=== PATIENT | female | born 1975 | race Caucasian/White ===

== ENCOUNTER → 2018-09-25 | Outpatient (CLI) | payer BC, OTHER | END | disposition home or self-care (01) | LOC: CFH 14:30 | PROVIDERS: ATTEND Obstetrics & Gynecology | DX: R92.2 Inconclusive mammogram (principal); N64.4 Mastodynia | CPT/HCPCS: 76641; 77066; G0279 ==

== ENCOUNTER 2019-11-30 13:30 | Outpatient (CLI) | payer BC ==
[2019-11-30 14:39] LABS: BASOPHILS # (AUTO) 0.02 x10^3/uL (0-0.1); BASOPHILS % (AUTO) 0 % (0-1); EOSINOPHILS # (AUTO) 0.24 x10^3/uL (0-0.4); EOSINOPHILS % (AUTO) 3 % (1-7); LYMPHOCYTES # (AUTO) 1.29 x10^3/uL (1-3.4); LYMPHOCYTES % (AUTO) 17 % (22-44); MD NO; MEAN CORPUSCULAR HEMOGLOBIN 29.6 pg (27.0-34.8); MEAN CORPUSCULAR HGB CONC 33.5 g/dL (32.4-35.8); MEAN PLATELET VOLUME 8.3 fL (7.4-10.4); MONOCYTES # (AUTO) 0.49 x10^3/uL (0.2-0.8); MONOCYTES % (AUTO) 6 % (2-9); NEUTROPHILS # (AUTO) 5.63 x10^3/uL (1.8-6.8); NEUTROPHILS % (AUTO) 74 % (42-75); PLATELET COUNT 327 x10^3/uL (130-400); RED BLOOD COUNT 5.02 x10^6/uL (3.82-5.3); RED CELL DISTRIBUTION WIDTH 13.2 % (9.6-15.2)
[2019-11-30 14:48] LABS: MICROSCOPIC NOT IND
[2019-11-30 14:49] LABS: ALANINE AMINOTRANSFERASE 24 U/L (12-78); ALBUMIN 4.1 g/dL (3.4-5.0); ANION GAP 6 mmol/L (5-15); CALCIUM 8.4 mg/dL (8.5-10.1); CHLORIDE 110 mmol/L (98-107); CREATININE 0.98 mg/dL (0.55-1.02)
[2019-11-30 14:53] LABS: ALKALINE PHOSPHATASE 41 U/L (45-117); BILIRUBIN,TOTAL 0.5 mg/dL (0.2-1.0); TOTAL PROTEIN 7.4 g/dL (6.4-8.2)
[2019-11-30] MEDS ORDERED: FLUT1BLS INH (15:00)
[2019-11-30] MEDS ORDERED: ALBU8.5H8 INH (15:00)
[2019-11-30] MEDS ORDERED: MULT-308 PO (15:00)
[2019-11-30] MEDS ORDERED: TIOT18CA INH (15:00)
[2019-11-30] MEDS ORDERED: L-NO1TBD5 PO (15:00)
[2019-11-30] MEDS ORDERED: CALC500T93 PO (15:00)
== END 2019-11-30 23:59 | disposition home or self-care (01) ==
LOC: STAR 13:30
PROVIDERS: ATTEND Obstetrics & Gynecology Gynecology
DX: Z01.818 Encounter for other preprocedural examination (principal); N81.12 Cystocele, lateral; Z88.1 Allergy status to other antibiotic agents
CPT/HCPCS: 36415; 80053; 81003; 84703; 85025

== ENCOUNTER 2019-12-11 05:39 | Day surgery (SDC) | payer BC ==
[~2019-12-11] VITALS: Ht 157.5 cm; Wt 48.0 kg
[~2019-12-11 05:39] MED LIST: ALBU8.5H8 INH; CALC500T93 PO; FLUT1BLS INH; L-NO1TBD5 PO; MULT-308 PO; TIOT18CA INH
[2019-12-11] MEDS ORDERED: LACTATED RINGERS 1,000 ML IV SCH (06:17)
[2019-12-11] MEDS ORDERED: CHLORHEXIDINE 15 ML UDC ONE (06:24)
[2019-12-11] MEDS ORDERED: CHLORHEXIDINE 15 ML UDC MM ONE (06:30)
[2019-12-11] MEDS ORDERED: LIDOCAINE-MPF 1%, 2ML ONE (06:33)
[2019-12-11 06:48] LABS: HCG UR SG 1.028 (1.003-1.030)
[2019-12-11] MEDS ORDERED: LIDOCAINE-MPF 1%, 2ML INFIL ONE (07:00)
[2019-12-11] MEDS ORDERED: FUROSEMIDE 20 MG/2 ML ONE (07:01)
[2019-12-11] MEDS ORDERED: THROMBIN 5,000 UNIT VIAL TP ONE (07:02)
[2019-12-11] MEDS ORDERED: LIDOCAINE 1%-EPI 1:100K, 20ML ONE (07:02)
[2019-12-11] MEDS ORDERED: INDIGO CARMINE 0.8%, 5ML ONE (07:02)
[2019-12-11] MEDS ORDERED: MIDAZOLAM 1 MG/ML, 2ML ONE (07:15)
[2019-12-11] MEDS ORDERED: FENTANYL PF 250 MCG/5ML ONE (07:16)
[2019-12-11] MEDS ORDERED: ACETAMINOPHEN 500 MG TABLET ONE (07:26)
[2019-12-11] MEDS ORDERED: GABAPENTIN 300 MG CAPSULE ONE (07:26)
[2019-12-11] MEDS ORDERED: PROPOFOL 150 ML ONE (07:37)
[2019-12-11] MEDS ORDERED: KETOROLAC 30 MG/1 ML ONE (08:05)
[2019-12-11] MEDS ORDERED: SUGAMMADEX 200 MG/2 ML IVPush ONE (08:51)
[2019-12-11] MEDS ORDERED: GLYCOPYRROLATE 0.2MG/1ML, 5ML ONE (08:55)
[2019-12-11] MEDS ORDERED: CEFAZOLIN 1,000 MG ONE (08:55)
[2019-12-11] MEDS ORDERED: ONDANSETRON 2MG/ML, 2ML ONE (08:55)
[2019-12-11] MEDS ORDERED: PROPOFOL 10 MG/ML, 20ML ONE (08:55)
[2019-12-11] MEDS ORDERED: SUCCINYLCHOLINE 20 MG/ML, 10ML ONE (08:55)
[2019-12-11] MEDS ORDERED: ROCURONIUM 10MG/ML,5ML ONE (08:55)
[2019-12-11] MEDS ORDERED: NEOSTIGMINE 1 MG/ML, 10ML ONE (08:55)
[2019-12-11] MEDS ORDERED: DEXAMETHASONE 4 MG/ML, 1ML ONE (08:55)
[2019-12-11] MEDS ORDERED: OXYcodone 5 MG/5 ML ORAL.SOL UDC PO PRN (09:30)
[2019-12-11] MEDS ORDERED: DIAZEPAM 5 MG/ML, 2ML IVPush PRN (09:30)
[2019-12-11] MEDS ORDERED: hydrALAzine 20 MG/ML, 1ML IV PRN (09:30)
[2019-12-11] MEDS ORDERED: PROMETHAZINE 25 MG/ML, 1ML IV PRN (09:30)
[2019-12-11] MEDS ORDERED: ALBUTEROL SULFATE 2.5 MG/3 ML NPPB PRN (09:30)
[2019-12-11] MEDS ORDERED: MEPERIDINE/PF 25MG/0.5ML IVPush PRN (09:30)
[2019-12-11] MEDS ORDERED: LABETALOL 5MG/ML, 20ML IV PRN (09:30)
[2019-12-11] MEDS ORDERED: FENTANYL PF 100 MCG/2ML IV PRN (09:30)
[2019-12-11] MEDS ORDERED: HYDROmorphone 2 MG/ML, 1ML IVPush PRN (09:30)
== END 2019-12-11 16:10 | disposition home or self-care (01) ==
LOC: OUT 05:39
PROVIDERS: ATTEND Obstetrics & Gynecology Gynecology
DX: N81.3 Complete uterovaginal prolapse (principal); Z11.59 Encounter for screening for other viral diseases; J45.909 Unspecified asthma, uncomplicated; E89.0 Postprocedural hypothyroidism; Z79.899 Other long term (current) drug therapy; Z88.2 Allergy status to sulfonamides
CPT/HCPCS: 36415; 57260; 57283; 58260; 81025; 85014; 87635; 88307; J0330; J0690; J1100; J1885; J1940; J2250; J2405; J2704; J2710; J3010; J3490; J7120